=== PATIENT | female | born 1995 | race American Indian/Alaskan Native ===

== ENCOUNTER 2017-04-18 13:05 | Inpatient (IN) | payer OTHER, MEDICAID ==
[2017-04-18] MEDS ORDERED: Lactated Ringers 1,000 ML IV SCH (13:30)
[2017-04-18] MEDS ORDERED: Sodium Chloride 0.9% 10 ML Syringe FLUSH PRN ×2 (13:30→15:50)
[2017-04-18] MEDS ORDERED: Bupivacaine 0.5% 30 ML SDV ONE (13:46)
[2017-04-18] MEDS ORDERED: Metoclopramide 10 MG/2 ML SDV ONE (13:48)
[2017-04-18] MEDS ORDERED: Citric Acid/Sodium Citrate Solution 30 ML Cup ONE (13:50)
[2017-04-18] MEDS ORDERED: Metoclopramide 10 MG/2 ML SDV IVPUSH ONE (13:51)
[2017-04-18] MEDS ORDERED: Citric Acid/Sodium Citrate Solution 30 ML Cup PO ONE (13:51)
--- NOTE | 2017-04-18 14:04 | PCM.LDHP ---
L&D History of Present Illness - General Date of Service: 04/18/17 Admit Problem/Dx: Patient Status Order with Admit Dx/Problem 04/18/17 13:36 Patient Status [ADT] Routine Admission Diagnosis/Problem Admission Diagnosis/Problem Normal labor Source of Information: Patient History Limitations: Reports: No Limitations - History of Present Illness Introduction:: 21-year-old G MEGHANA 04/25/1739 weeks 0 days estimated gestational age with history of Montini us ruptured membranes at 1900 hrs. on Wednesday04/16/17 ( now 36-37 hours ruptured membranes) cervix on presentation to labor and delivery fingertip dilated posterior soft 50% effaced foul odor from the vagina if vaginal delivery were to be anticipated estimated at least 12-14 hours of additional ruptured membranes and contractions if adequate progress is made due to the category 2 heart rate pattern and prolonged ruptured membranes and foul odor my recommendation is to proceed with section family father of baby and mother agree patient is a patient of Dr. López's GC and chlamydia probe negative hepatitis B surface antigen negative free T4 normal rubella is negative blood group A RPR nonreactive immune status nonimmune Rh+ antibody screen negative group B strep negative HIV negative TSH normal range hemoglobin hematocrit on 10/23/1712/38.2 Improves with: Reports: None Worsens with: Reports: None Associated Symptoms: Reports: N - Related Data Allergies/Adverse Reactions: Allergies Allergy/AdvReac Type Severity Reaction Status Date / Time No Known Allergies Allergy Verified 04/13/17 22:35 Home Medications: Home Meds Vit 90/Iron Fum/Folic [ Formula] 1 each PO DAILY 10/25/16 [ History] Acetaminophen with Codeine [Tylenol with Codeine #3 Tablet] 1 each PO Q6HR PRN # 5 tablet 11/13/16 [Rx] Ondansetron [Zofran ODT] 4 mg PO Q6H PRN #15 tab.dis 11/13/16 [Rx] Past Medical History - Past Health History Medical/Surgical History: Denies Medical/Surgical History SINGING MESSENGER History: Reports: Spontaneous : 3 Para: 0 (0020) LMP (Approximate): Other (See Below) (Patient has past medical history of chlamydia no history of MRSA) Other OB/BYN History: currently - Past Surgical History Head Surgeries/Procedures: Reports: None HEENT Surgical History: Reports: None Cardiovascular Surgical History: Reports: None Respiratory Surgical History: Reports: None GI Surgical History: Reports: None Female Surgical History: Reports: None Male Surgical History: Reports: None Endocrine Surgical History: Reports: None Neurological Surgical History: Reports: None Musculoskeletal Surgical History: Reports: None Oncologic Surgical History: Reports: None Dermatological Surgical History: Reports: None Social & Family History - Family History Family Medical History: Noncontributory - Tobacco Use Smoking Status *Q: Never Smoker Years of Tobacco use: 1 Used Tobacco, but Quit: No - Caffeine Use Caffeine Use: Reports: None - Recreational Drug Use Recreational Drug Use: No Recreational Drug Type: Reports: Marijuana/Hashish - Living Situation & Occupation Living situation: Reports: Single Occupation: Unemployed H&P Review of Systems - Review of Systems: Review Of Systems: See Below General: Reports: No Symptoms HEENT: Reports: No Symptoms Pulmonary: Reports: No Symptoms Cardiovascular: Reports: No Symptoms Gastrointestinal: Reports: No Symptoms Genitourinary: Reports: No Symptoms Musculoskeletal: Reports: No Symptoms Skin: Reports: No Symptoms Psychiatric: Reports: No Symptoms Neurological: Reports: No Symptoms Hematologic/Lymphatic: Reports: No Symptoms Immunologic: Reports: No Symptoms L&D Exam - Exam Exam: See Below - Vital Signs Weight: 215 lb - OB Specific Fundal Height In cm: 39 Contraction Duration (sec): 60 Contraction Frequency (min): irregular Contraction Intensity: Mild Movement: Active Heart Tones: Present Heart Tones per Min: 130 Heart Rate (FHR) Variability: Minimal (0-5 bpm) Presentation: Vertex - Mathias Score Mathias Score Cervix Position: Posterior Mathias Score Consistency: Soft Mathias Score Effacement: 0-30% Mathias Score Dilation: 1-2 cm Mathias Score Infant's Station: -2 Mathias Score Total: 4 - Exam General: Alert, Oriented HEENT: Mucosa Moist & [place] Neck: Supple, Trachea Midline Lungs: Clear to Auscultation, Normal Respiratory Effort Cardiovascular: Regular Rate, Regular Rhythm Abdomen: Normal Bowel Sounds, Soft, Pelvis Stable Genitourinary: Normal external exam (Cervix 1 cm dilated 20-30% effaced and soft posterior, cephalic -2 foul odor noted on vaginal exam) Extremities: Normal Inspection Skin: Warm, Dry, Intact Psychiatric: Alert, Normal Affect, Normal Mood - Problem List (1) 39 weeks gestation of SNOMED Code(s): 74116867 ICD Code: Z3A.39 - 39 WEEKS GESTATION OF Status: Acute Current Visit: Yes (2) Prolonged rupture of membranes, greater than 24 hours, delivered SNOMED Code(s): 41576409 ICD Code: O42.10 - GARO ROM, ONSET LABOR > 24 HR FOL RUPT, UNSP WEEKS OF GEST Status: Acute Current Visit: Yes Problem List Initiated/Reviewed/Updated: No Orders Last 24hrs: Active Orders 24 hr Category Date Time Status Patient Status [ADT] Routine ADT 04/18/17 13:36 Active Activity as Tolerated [RC] PFP Care 04/18/17 13:36 Active Antiembolic Devices [RC] PER UNIT ROUTINE Care 04/18/17 13:54 Ordered Communication Order [RC] ASDIRECTED Care 04/18/17 13:36 Active Heart Tones [RC] ASDIRECTED Care 04/18/17 13:36 Active Salcido Catheter Insertion [Insert Urinary Catheter] [OM. Care 04/18/17 14:00 Ordered PC] Q24H Notify Provider [RC] PFP Care 04/18/17 13:36 Active Notify Provider [RC] PRN Care 04/18/17 13:36 Active Peripheral IV Care [RC] . DIRECTED Care 04/18/17 13:36 Active Urinary Catheter Assessment [RC] ASDIRECTED Care 04/18/17 13:54 Ordered Verify Patient Consent Obtain [RC] ASDIRECTED Care 04/18/17 13:52 Ordered Vital Signs [RC] PER UNIT ROUTINE Care 04/18/17 13:36 Active CBC WITH AUTO DIFF [HEME] Stat Lab 04/18/17 13:30 Ordered TYPE AND SCREEN [BBK] Stat Lab 04/18/17 13:30 Ordered Lactated Ringers [Ringers, Lactated] 1,000 ml Med 04/18/17 13:30 Active IV ASDIRECTED Sodium Chloride 0.9% [Saline Flush] Med 04/18/17 13:30 Active 10 ml FLUSH ASDIRECTED PRN Electronic Heart Tones Ext w TOCO [WOMSER] Oth 04/18/17 13:36 Ordered Routine Electronic Heart Tones Internal [WOMSER] Per Unit Oth 04/18/17 13:36 Ordered Routine Peripheral IV Insertion Adult [OM.PC] Routine Oth 04/18/17 13:36 Ordered SCD [Sequential Compression Device] [OM.PC] Routine Oth 04/18/17 13:54 Ordered Schedule Procedure [COMM] Urgent Oth 04/18/17 13:51 Ordered Resuscitation Status Routine Resus Stat 04/18/17 13:30 Ordered Medication Orders Lactated Ringer's (Ringers, Lactated) 1,000 mls @ 100 mls/hr IV ASDIRECTED WILLIAM Sodium Chloride (Saline Flush) 10 ml FLUSH ASDIRECTED PRN PRN Reason: Keep Vein Open Assessment/Plan Comment:: Due to prolonged ruptured membranes for greater than 36 hours, category 2 heart rate initially, and anticipate vaginal delivery at least 12 hours or more from now placing patient 48 hours ruptured membranes and foul odor from the vagina and the recommendations for section patient father of the baby and mother agree
[2017-04-18] MEDS ORDERED: Oxytocin 10 Units/1 ML SDV ONE (14:07)
[2017-04-18] MEDS ORDERED: Lactated Ringers 2,000 ML ONE (14:07)
[2017-04-18] MEDS ORDERED: Morphine PF 10 MG/10 ML SDV ONE (14:07)
[2017-04-18] MEDS ORDERED: Ketorolac 30 MG/ML SDV ONE (14:07)
[2017-04-18] MEDS ORDERED: ceFAZolin 1 GM Vial ONE (14:07)
[2017-04-18] MEDS ORDERED: Ondansetron 4 MG/2 ML SDV ONE (14:07)
[2017-04-18] MEDS ORDERED: diphenhydrAMINE 50 MG/ML SDV IVPUSH PRN ×2 (14:37→15:50)
[2017-04-18] MEDS ORDERED: Ondansetron 4 MG/2 ML SDV IVPUSH PRN (14:37)
[2017-04-18] MEDS ORDERED: fentaNYL 100 MCG/2 ML SDV IVPUSH PRN (14:37)
[2017-04-18] MEDS ORDERED: Meperidine PF 50 MG/ML Syringe IVPUSH PRN (14:37)
[2017-04-18] MEDS ORDERED: ePHEDrine/Normal Saline 25 MG/5 ML Syringe ONE (14:42)
--- NOTE | 2017-04-18 14:45 | PCM.PREANE ---
Preanesthetic Assessment - Physical Assessment NPO Status Date: 04/17/17 NPO Status Time: 23:00 (tea at 11 today) Pulse: 74 O2 Sat by Pulse Oximetry: 97 Respiratory Rate: 20 Blood Pressure: 116/71 Temperature: 97.9 F Height: 5 ft 8 in Weight: 97.522 kg ASA Class: 2E Mental Status: Alert & Oriented x3 Airway Class: Mallampati = 1 Dentition: Reports: Normal Dentition Thyro-Mental Finger Breadths: 3 Mouth Opening Finger Breadths: 3 ROM/Head Extension: Full Lungs: Clear to auscultation, Normal respiratory effort Cardiovascular: Regular Rate, Regular Rhythm - Lab Values: Laboratory Last Values WBC 6.24 K/mm3 (3.98-10.04) 04/18/17 13:50 RBC 3.78 M/mm3 (3.98-5.22) L 04/18/17 13:50 Hgb 11.4 gm/L (11.2-15.7) 04/18/17 13:50 Hct 33.0 % (34.1-44.9) L 04/18/17 13:50 MCV 87.3 fl (79.4-94.8) 04/18/17 13:50 MCH 30.2 pg (25.6-32.2) 04/18/17 13:50 MCHC 34.5 g/dl (32.2-35.5) 04/18/17 13:50 RDW Std Deviation 42.5 fL (36.4-46.3) 04/18/17 13:50 Plt Count 190 K/mm3 (182-369) 04/18/17 13:50 MPV 9.8 fl (9.4-12.3) 04/18/17 13:50 Neut % (Auto) 65.1 % (34.0-71.1) 04/18/17 13:50 Lymph % (Auto) 26.8 % (19.3-51.7) 04/18/17 13:50 [place] % (Auto) 7.1 % (4.7-12.5) 04/18/17 13:50 Eos % (Auto) 0.6 (0.7-5.8) L 04/18/17 13:50 Baso % (Auto) 0.2 % (0.1-1.2) 04/18/17 13:50 Neut # (Auto) 4.07 K/mm3 (1.56-6.13) 04/18/17 13:50 Lymph # (Auto) 1.67 K/mm3 (1.18-3.74) 04/18/17 13:50 [place] # (Auto) 0.44 K/mm3 (0.24-0.36) H 04/18/17 13:50 Eos # (Auto) 0.04 K/mm3 (0.04-0.36) 04/18/17 13:50 Baso # (Auto) 0.01 K/mm3 (0.01-0.08) 04/18/17 13:50 - Allergies Allergies/Adverse Reactions: Allergies Allergy/AdvReac Type Severity Reaction Status Date / Time No Known Allergies Allergy Verified 04/13/17 22:35 - Blood Blood Available: No - Acknowledgements Anesthesia Type Planned: Spinal Pt an Appropriate Candidate for the Planned Anesthesia: Yes Alternatives and Risks of Anesthesia Discussed w Pt/Guardian: Yes Pt/Guardian Understands and Agrees with Anesthesia Plan: Yes PreAnesthesia Questionnaire - Past Health History Medical/Surgical History: Denies Medical/Surgical History Cardiovascular History: Reports: None Respiratory History: Reports: None TUNNEL MUCKER History: Reports: Spontaneous : 3 Para: 0 Other OB/BYN History: currently - Past Surgical History Head Surgeries/Procedures: Reports: None HEENT Surgical History: Reports: None Cardiovascular Surgical History: Reports: None Respiratory Surgical History: Reports: None GI Surgical History: Reports: None Female Surgical History: Reports: None Male Surgical History: Reports: None Endocrine Surgical History: Reports: None Neurological Surgical History: Reports: None Musculoskeletal Surgical History: Reports: None Oncologic Surgical History: Reports: None Dermatological Surgical History: Reports: None - SUBSTANCE USE Smoking Status *Q: Former Smoker (quit when ) Tobacco Use Within Last Twelve Months: Cigarettes Second Hand Smoke Exposure: Yes Days Per Week of Alcohol Use: 0 Recreational Drug Use History: No Recreational Drug Type: Reports: Marijuana/Hashish (denies) - HOME MEDS Home Medications: Home Meds Vit 90/Iron Fum/Folic [ Formula] 1 each PO DAILY 10/25/16 [ History] Acetaminophen with Codeine [Tylenol with Codeine #3 Tablet] 1 each PO Q6HR PRN # 5 tablet 11/13/16 [Rx] Ondansetron [Zofran ODT] 4 mg PO Q6H PRN #15 tab.dis 11/13/16 [Rx] - CURRENT (IN HOUSE) MEDS Current Meds: Current Medications Diphenhydramine HCl (Benadryl) 25 mg IVPUSH Q6H PRN PRN Reason: pruritis Fentanyl (Sublimaze) 50 mcg IVPUSH Q5M PRN PRN Reason: Pain Lactated Ringer's (Ringers, Lactated) 1,000 mls @ 100 mls/hr IV ASDIRECTED WILLIAM Meperidine HCl (Demerol) 12.5 mg IVPUSH ONETIME PRN PRN Reason: shivering Stop: 04/19/17 14:38 Ondansetron HCl (Zofran) 4 mg IVPUSH ONETIME PRN PRN Reason: Nausea/Vomiting Sodium Chloride (Saline Flush) 10 ml FLUSH ASDIRECTED PRN PRN Reason: Keep Vein Open Discontinued Medications Bupivacaine HCl (Marcaine 0.5%) Confirm Administered Dose 30 ml .ROUTE .STK-MED ONE Stop: 04/18/17 13:47 Cefazolin Sodium (Ancef) Confirm Administered Dose 2 gm .ROUTE .STK-MED ONE Stop: 04/18/17 14:08 Citric Acid/Sodium Citrate (Bicitra Solution) Confirm Administered Dose 30 ml .ROUTE .STK-MED ONE Stop: 04/18/17 13:51 Citric Acid/Sodium Citrate (Bicitra Solution) 30 ml PO ONETIME ONE Stop: 04/18/17 13:52 Ephedrine Sulfate (Ephedrine In Ns) Confirm Administered Dose 25 mg .ROUTE .STK- MED ONE Stop: 04/18/17 14:43 Lactated Ringer's (Ringers, Lactated) Confirm Administered Dose 2,000 mls @ as directed .ROUTE .STK-MED ONE Stop: 04/18/17 14:08 Ketorolac Tromethamine (Toradol) Confirm Administered Dose 30 mg .ROUTE .STK- MED ONE Stop: 04/18/17 14:08 Metoclopramide HCl (Reglan) Confirm Administered Dose 10 mg .ROUTE .STK-MED ONE Stop: 04/18/17 13:49 Metoclopramide HCl (Reglan) 10 mg IVPUSH ONETIME ONE Stop: 04/18/17 13:52 Morphine Sulfate (Duramorph Pf) Confirm Administered Dose 10 mg .ROUTE .STK-MED ONE Stop: 04/18/17 14:08 Ondansetron HCl (Zofran) Confirm Administered Dose 4 mg .ROUTE .STK-MED ONE Stop: 04/18/17 14:08 Oxytocin (Pitocin) Confirm Administered Dose 10 unit .ROUTE .STK-MED ONE Stop: 04/18/17 14:08
--- NOTE | 2017-04-18 15:21 | PCM.OPNOTE ---
- General Post-Op/Procedure Note Date of Surgery/Procedure: 04/18/17 Operative Procedure(s): Primary section low transverse segment Pre Op Diagnosis: 39 weeks estimated gestational age, prolonged premature ruptured membranes 36+ hours Post-Op Diagnosis: Same plus occiput posterior, nuchal cord 1 Anesthesia Technique: Spinal Primary Surgeon: Daniel Crum Secondary Surgeon: Jordi (Farhad Acosta RN) Anesthesia Provider: Marcel Lieberman Booster Operator: Liana Durán ([id number]) Fluid Replacement, Intraop: 1,200 Output, Urine Amount: 160 EBL in mLs: 800 Drain/Tube Comments:: Salcido catheter Complications: None Condition: Good Free Text/Narrative:: Patient was transported to operating room #1 and placed under spinal anesthesia in the supine position with a wedge under the right hip and right flank Salcido catheter placed gravity drainage vaginal and abdominal prep performed patient draped in a sterile fashion timeout performed confirming name date of procedure as primary section. Adequate level of anesthesia was confirmed patient's mother was brought to the operating room injecting 20 mL of 0.5% Marcaine subcutaneously without epinephrine in the area of the planned incision. Patient had SCDs in place and functioning prior surgery and received 2 g of Ancef prior to surgery Pfannenstiel incision was made and care was sharp section to into the anterior fascia peritoneal cavity was entered without difficulty bladder flap created pushed caudad low segment transverse performed delivering a male liveborn at 1448 hrs. on Sundays04/18/17 weighing 8 lbs. 10 oz. 9/9 Dr. Hawkins mail messenger contractor in attendance a 6 inch or longer segment of cord taken for the nursery encase sepsis is encountered, aerobic anaerobic culture taken of the surface of the placenta after obtaining cord blood from three-vessel cord and manual removal of the placenta placenta was sent to pathology for tissue evaluation endometrial cavity was inspected cervical patency was assured and sponge needle pack asthma sharp count correct times one the uterine incision closed with a running locking suture of #0 Monocryl second layer horizontal imbricating suture of 0 Monocryl was tubes and ovaries were normal clot screen from the gutters and cul-de-sac uterus placed into the abdominal cavity uterine incision reinspected no bleeding sponge needle pack asthma sharp count correct 2 the abdominal cavity was closed with # 1 PDS for the anterior fascia irrigation carried out in the subcutaneoustissue and the skin was approximated with 3-0 Monocryl Don needle subcuticular suture Dermabond Preneo applied. Clots were cleaned from the vagina patient transported postanesthesia care unit in satisfactory condition no blood transfusions were required patient in stable condition
--- NOTE | 2017-04-18 15:21 | PCM.POSTAN ---
POST ANESTHESIA ASSESSMENT - MENTAL STATUS Mental Status: alert, oriented - VITAL SIGNS Pulse Rate: 60 SaO2: 96 Resp Rate: 19 Blood Pressure: 108/63 Temperature: 97.2 F - RESPIRATORY Respiratory Status: respiratory rate WNL, airway patent, O2 saturation stable, supplemental oxygen - CARDIOVASCULAR CV Status: pulse rate WNL, blood pressure stable - GASTROINTESTINAL GI Status: no symptoms - PAIN Pain Score: 0 - POST OP HYDRATION Hydration Status: adequate & stable
[2017-04-18] MEDS ORDERED: Lanolin 100% Cream 7 GM Tube TOP PRN (15:50)
[2017-04-18] MEDS ORDERED: Witch Hazel Medicated Pads 100/Jar TOP PRN (15:50)
[2017-04-18] MEDS ORDERED: Dextrose 5%-0.45% NaCl 1,000 ML IV SCH (15:50)
[2017-04-18] MEDS ORDERED: Dextrose 5%-Lactated Ringers 1,000 ML IV SCH (15:50)
[2017-04-18] MEDS ORDERED: ePHEDrine 50 MG/ML SDV IVPUSH PRN (15:50)
[2017-04-18] MEDS ORDERED: Acetaminophen 325 MG Tab PO PRN (15:50)
[2017-04-18] MEDS ORDERED: Ondansetron 4 MG/2 ML SDV IV PRN (15:50)
[2017-04-18] MEDS ORDERED: Naloxone 0.4 MG/ML SDV IVPUSH PRN (15:50)
[2017-04-18] MEDS: cefOXitin 2 GM in Premix Bag 1 BAG IV SCH (18:55)
[2017-04-18] MEDS: Simethicone 80 MG Tab.Chew PO SCH ×3 (18:55→23:50)
[2017-04-18] MEDS: Ketorolac 30 MG/ML SDV IVPUSH SCH (20:56)
[2017-04-19] MEDS: cefOXitin 2 GM in Premix Bag 1 BAG IV SCH ×5 (00:01→23:48)
[2017-04-19] MEDS: Ketorolac 30 MG/ML SDV IVPUSH SCH ×2 (02:22→07:31)
[2017-04-19] MEDS ORDERED: Measles, Mumps & Rubella Vaccine 0.5 ML SDV SUBCUT ONE (03:39)
--- NOTE | 2017-04-19 08:25 | PCM.SN ---
- Free Text/Narrative Note: Postop day #1 No heavy vaginal bleeding no leg cramping incision healing normally
[2017-04-19] MEDS: Docusate Sodium 100 MG Cap PO PRN (09:45)
[2017-04-19] MEDS: Acetaminophen/oxyCODONE 325-5 MG Tab PO PRN ×3 (09:45→23:46)
[2017-04-19] MEDS: Simethicone 80 MG Tab.Chew PO SCH ×4 (11:07→23:46)
[2017-04-19] MEDS ORDERED: Ibuprofen 600 MG Tab PO PRN (14:00)
--- NOTE | 2017-04-19 15:24 | PCM48HPAN ---
Post Anesthesia Note - EVALUATION WITHIN 48HRS OF ANESTHETIC Vital Signs in Normal Range: Yes Patient Participated in Evaluation: Yes Respiratory Function Stable: Yes Airway Patent: Yes Cardiovascular Function Stable: Yes Hydration Status Stable: Yes Pain Control Satisfactory: Yes Nausea and Vomiting Control Satisfactory: Yes Mental Status Recovered: Yes - COMMENTS/OBSERVATIONS Free Text/Narrative:: Patient denied any residual LE weakness, headaches, or back pain. Doing well. Ambulating fine. Denies any problems
[2017-04-20] MEDS: Acetaminophen/oxyCODONE 325-5 MG Tab PO PRN ×2 (04:54→11:40)
[2017-04-20] MEDS: cefOXitin 2 GM in Premix Bag 1 BAG IV SCH (06:39)
[2017-04-20] MEDS: Docusate Sodium 100 MG Cap PO PRN (09:03)
[2017-04-20] MEDS: Simethicone 80 MG Tab.Chew PO SCH (09:03)
--- NOTE | 2017-04-20 10:02 | PCM.DCSUM1 ---
Discharge Summary - Hospital Course Free Text/Narrative:: [facility] Post-Op/Procedure Note Patient Name: SARAH ELMORE Date of : 89 Patient Status: Inpatient Attending Provider: Daniel Crum Date: 04/18/17 15:16 Initialization Date: 04/18/17 15:16 Addendum entered and electronically signed by Daniel Crum MD 04/18/17 15 :26: At the time of delivery vacuum required for delivering the fetus 2 in the green for less than 10 seconds Original Note: - General Post-Op/Procedure Note Date of Surgery/Procedure: 04/18/17 Operative Procedure(s): Primary section low transverse segment Pre Op Diagnosis: 39 weeks estimated gestational age, prolonged premature ruptured membranes 36+ hours Post-Op Diagnosis: Same plus occiput posterior, nuchal cord 1 Anesthesia Technique: Spinal Primary Surgeon: Daniel Crum Secondary Surgeon: Jordi (Farhad Acosta RN) Anesthesia Provider: Marcel Lieberman Open Hearth Laborer: Liana Durán (MS3) Fluid Replacement, Intraop: 1,200 Output, Urine Amount: 160 EBL in mLs: 800 Drain/Tube Comments:: Salcido catheter Complications: None Condition: Good Free Text/Narrative:: Patient was transported to operating room #1 and placed under spinal anesthesia in the supine position with a wedge under the right hip and right flank Salcido catheter placed gravity drainage vaginal and abdominal prep performed patient draped in a sterile fashion timeout performed confirming name date of procedure as primary section. Adequate level of anesthesia was confirmed patient's mother was brought to the operating room injecting 20 mL of 0.5% Marcaine subcutaneously without epinephrine in the area of the planned incision. Patient had SCDs in place and functioning prior surgery and received 2 g of Ancef prior to surgery Pfannenstiel incision was made and care was sharp section to into the anterior fascia peritoneal cavity was entered without difficulty bladder flap created pushed caudad low segment transverse performed delivering a male liveborn at 1448 hrs. on Sundays04/18/17 weighing 8 lbs. 10 oz. 9/9 Dr. Hawkins fixed wing aircraft flight engineer in attendance a 6 inch or longer segment of cord taken for the nursery encase sepsis is encountered, aerobic anaerobic culture taken of the surface of the placenta after obtaining cord blood from three-vessel cord and manual removal of the placenta placenta was sent to pathology for tissue evaluation endometrial cavity was inspected cervical patency was assured and sponge needle pack asthma sharp count correct times one the uterine incision closed with a running locking suture of #0 Monocryl second layer horizontal imbricating suture of 0 Monocryl was tubes and ovaries were normal clot screen from the gutters and cul-de-sac uterus placed into the abdominal cavity uterine incision reinspected no bleeding sponge needle pack asthma sharp count correct 2 the abdominal cavity was closed with # 1 PDS for the anterior fascia irrigation carried out in the subcutaneoustissue and the skin was approximated with 3-0 Monocryl Don needle subcuticular suture Dermabond Preneo applied. Clots were cleaned from the vagina patient transported postanesthesia care unit in satisfactory condition no blood transfusions were required patient in stable condition HPI Initial Comments: [facility] Post-Op/Procedure Note Patient Name: SARAH ELMORE Date of : [birth year] Patient Status: Inpatient Attending Provider: Daniel Crum Date: 04/18/17 15:16 Initialization Date: 04/18/17 15:16 Addendum entered and electronically signed by Daniel Crum MD 04/18/17 15 :26: At the time of delivery vacuum required for delivering the fetus 2 in the green for less than 10 seconds Original Note: - General Post-Op/Procedure Note Date of Surgery/Procedure: 04/18/17 Operative Procedure(s): Primary section low transverse segment Pre Op Diagnosis: 39 weeks estimated gestational age, prolonged premature ruptured membranes 36+ hours Post-Op Diagnosis: Same plus occiput posterior, nuchal cord 1 Anesthesia Technique: Spinal Primary Surgeon: Daniel Crum Secondary Surgeon: Jordi (Farhad Acosta RN) Anesthesia Provider: Marcel Lieberman Open Hearth Laborer: Liana Durán (MS3) Fluid Replacement, Intraop: 1,200 Output, Urine Amount: 160 EBL in mLs: 800 Drain/Tube Comments:: Salcido catheter Complications: None Condition: Good Free Text/Narrative:: Patient was transported to operating room #1 and placed under spinal anesthesia in the supine position with a wedge under the right hip and right flank Salcido catheter placed gravity drainage vaginal and abdominal prep performed patient draped in a sterile fashion timeout performed confirming name date of procedure as primary section. Adequate level of anesthesia was confirmed patient's mother was brought to the operating room injecting 20 mL of 0.5% Marcaine subcutaneously without epinephrine in the area of the planned incision. Patient had SCDs in place and functioning prior surgery and received 2 g of Ancef prior to surgery Pfannenstiel incision was made and care was sharp section to into the anterior fascia peritoneal cavity was entered without difficulty bladder flap created pushed caudad low segment transverse performed delivering a male liveborn at 1448 hrs. on Sundays04/18/17 weighing 8 lbs. 10 oz. 9/9 Dr. Hawkins fixed wing aircraft flight engineer in attendance a 6 inch or longer segment of cord taken for the nursery encase sepsis is encountered, aerobic anaerobic culture taken of the surface of the placenta after obtaining cord blood from three-vessel cord and manual removal of the placenta placenta was sent to pathology for tissue evaluation endometrial cavity was inspected cervical patency was assured and sponge needle pack asthma sharp count correct times one the uterine incision closed with a running locking suture of #0 Monocryl second layer horizontal imbricating suture of 0 Monocryl was tubes and ovaries were normal clot screen from the gutters and cul-de-sac uterus placed into the abdominal cavity uterine incision reinspected no bleeding sponge needle pack asthma sharp count correct 2 the abdominal cavity was closed with # 1 PDS for the anterior fascia irrigation carried out in the subcutaneoustissue and the skin was approximated with 3-0 Monocryl Don needle subcuticular suture Dermabond Preneo applied. Clots were cleaned from the vagina patient transported postanesthesia care unit in satisfactory condition no blood transfusions were required patient in stable condition Brief History: [facility] . Post-Op/Procedure Note. Patient Name: SARAH ELMOREical Record Number: [id number]. Date of : [birth year]Patient Status: Inpatient. Attending Provider: Daniel Crumount Number: [id number]. Date: 04/18/17 15:16Initialization Date: 15:16. Addendum entered and electronically signed by Daniel Crum MD 04/18/17 15:26: At the time of delivery vacuum required for delivering the fetus 2 in the green for less than 10 seconds. Original Note: - General Post- Op/Procedure Note. Date of Surgery/Procedure: 04/18/17. Operative Procedure(s) : Primary section low transverse segment. Pre Op Diagnosis: 39 weeks estimated gestational age, prolonged premature ruptured membranes 36+ hours. Post-Op Diagnosis: Same plus occiput posterior, nuchal cord 1. Anesthesia Technique: Spinal. Primary Surgeon: Daniel Crum. Secondary Surgeon: Jordi (Farhad Acosta RN). Anesthesia Provider: Marcel Lieberman. Open Hearth Laborer: Liana Durán (MS3). Fluid Replacement, Intraop: 1,200. Output, Urine Amount: 160. EBL in mLs: 800. Drain/Tube Comments:: Salcido catheter. Complications: None. Condition: Good. Free Text/Narrative:: Patient was transported to operating room #1 and placed under spinal anesthesia in the supine position with a wedge under the right hip and right flank Salcido catheter placed gravity drainage vaginal and abdominal prep performed patient draped in a sterile fashion timeout performed confirming name date of procedure as primary section. Adequate level of anesthesia was confirmed patient's mother was brought to the operating room injecting 20 mL of 0.5% Marcaine subcutaneously without epinephrine in the area of the planned incision. Patient had SCDs in place and functioning prior surgery and received 2 g of Ancef prior to surgery Pfannenstiel incision was made and care was sharp section to into the anterior fascia peritoneal cavity was entered without difficulty bladder flap created pushed caudad low segment transverse performed delivering a male liveborn at 1448 hrs. on Sundays04/18/17 weighing 8 lbs. 10 oz. 9/9 Dr. Hawkins fixed wing aircraft flight engineer in attendance a 6 inch or longer segment of cord taken for the nursery encase sepsis is encountered, aerobic anaerobic culture taken of the surface of the placenta after obtaining cord blood from three-vessel cord and manual removal of the placenta placenta was sent to pathology for tissue evaluation endometrial cavity was inspected cervical patency was assured and sponge needle pack asthma sharp count correct times one the uterine incision closed with a running locking suture of #0 Monocryl second layer horizontal imbricating suture of 0 Monocryl was tubes and ovaries were normal clot screen from the gutters and cul-de-sac uterus placed into the abdominal cavity uterine incision reinspected no bleeding sponge needle pack asthma sharp count correct 2 the abdominal cavity was closed with #1 PDS for the anterior fascia irrigation carried out in the subcutaneoustissue and the skin was approximated with 3-0 Monocryl Don needle subcuticular suture Dermabond Preneo applied. Clots were cleaned from the vagina patient transported postanesthesia care unit in satisfactory condition no blood transfusions were required patient in stable condition - Discharge Data Discharge Date: 04/20/17 Discharge Disposition: Home, Self-Care 01 Condition: Good - Discharge Diagnosis/Problem(s) (1) 39 weeks gestation of SNOMED Code(s): 52989702 ICD Code: Z3A.39 - 39 WEEKS GESTATION OF Status: Acute Current Visit: No (2) Prolonged rupture of membranes, greater than 24 hours, delivered SNOMED Code(s): 04427832 ICD Code: O42.10 - GARO ROM, ONSET LABOR > 24 HR FOL RUPT, UNSP WEEKS OF GEST Status: Acute Current Visit: No (3) Nuchal cord without compression, delivered, current hospitalization SNOMED Code(s): 31210773 ICD Code: O69.81X0 - LABOR AND DEL COMP BY CORD AROUND NECK, W/O COMPRSN, UNSP Status: Acute Current Visit: Yes (4) Occiput posterior presentation of fetus SNOMED Code(s): 66566344 ICD Code: O64.0XX0 - OBSTRUCTED LABOR DUE TO INCMPL ROTATION OF HEAD, UNSP Status: Acute Current Visit: Yes Qualifiers: Fetus number: single or unspecified fetus Qualified Code(s): O64.0XX0 - Obstructed labor due to incomplete rotation of head, not applicable or unspecified - Patient Summary/Data Operative Procedure(s) Performed: Primary section low transverse segment Complications: none Consults: none Hospital Course: uneventful - Patient Instructions Diet: Heart Healthy Diet Driving: Do Not Drive (x4 weeks) Showering/Bathing: May Shower, No Tub Bathing/Swimming (x6 weeks) Wound/Incision Care: Keep Operative Site/Wound Site Clean and Dry Notify Provider of: Fever, Increased Pain, Swelling and Redness, Drainage, Nausea and/or Vomiting - Discharge Plan Home Medications: Home Meds Vit 90/Iron Fum/Folic [ Formula] 1 each PO DAILY 10/25/16 [ History] Acetaminophen [Tylenol] 650 mg PO Q6H PRN #0 tablet 04/20/17 [Rx] Acetaminophen/oxyCODONE [Percocet 325-5 MG] 1 tab PO Q6H PRN #25 tablet [Rx] Docusate Sodium [Colace] 100 mg PO Q12H PRN #0 cap 04/20/17 [Rx] Ibuprofen [IJD: Ibuprofen] 600 mg PO Q6H PRN #0 tablet 04/20/17 [Rx] Simethicone 80 mg PO PCBED tab.chew 04/20/17 [Rx] Witaditi Savannah [Tucks] 1 pad TOP ASDIRECTED PRN #0 pad 04/20/17 [Rx] Referrals: Tayler Calhoun MD [Primary Care Provider] - (4 weeks) - Discharge Summary/Plan Comment DC Time >30 min.: No - Patient Data Vitals - Most Recent: Last Vital Signs Temp 98.1 F 04/20/17 04:32 Pulse 55 L 04/20/17 04:32 Resp 12 04/20/17 04:32 BP 115/62 04/20/17 04:32 Pulse Ox 98 04/20/17 04:32 Weight - Most Recent: 215 lb I&O - Last 24 hours: Intake & Output 04/19/17 04/20/17 04/20/17 22:59 06:59 14:59 Intake Total 900 Output Total 100 Balance 800 HOLA Results - Last 24 hrs: Microbiology 04/18/17 15:50 Gram Stain - Final Placenta - Placenta, Side Anaerobic Culture - Preliminary NO GROWTH AFTER 1 DAY Med Orders - Current: Current Medications Acetaminophen (Tylenol) 650 mg PO Q4H PRN PRN Reason: mild pain or fever Diphenhydramine HCl (Benadryl) 25 mg IVPUSH Q6H PRN PRN Reason: Itching or Nausea Last Admin: 04/18/17 20:01 Dose: 25 mg Docusate Sodium (Colace) 100 mg PO Q12H PRN PRN Reason: Constipation Last Admin: 04/20/17 09:03 Dose: 100 mg Emollient Ointment (Lansinoh Hpa) 0 gm TOP ASDIRECTED PRN PRN Reason: Sore Nipples Ephedrine Sulfate (Ephedrine Sulfate) 5 mg IVPUSH SEECOMMENT PRN PRN Reason: Other Dextrose/Sodium Chloride (Dextrose 5%-1/2 Ns) 1,000 mls @ 125 mls/hr IV ASDIRECTED [facility] Last Admin: 04/19/17 02:10 Dose: 125 mls/hr Cefoxitin Sodium 2 gm/ Premix 50 mls @ 100 mls/hr IV Q6HR [facility] Last Admin: 04/20/17 06:39 Dose: 100 mls/hr Ibuprofen (Motrin) 600 mg PO Q6H PRN PRN Reason: mild pain or fever Naloxone HCl (Narcan) 0.1 mg IVPUSH SEECOMMENT PRN PRN Reason: Respiratory Depression Ondansetron HCl (Zofran) 4 mg IV Q8H PRN PRN Reason: Nausea/Vomiting Last Admin: 04/18/17 21:02 Dose: 4 mg Oxycodone/Acetaminophen (Percocet 325-5 Mg) 2 tab PO Q4H PRN PRN Reason: Pain (moderate 4-6) Last Admin: 04/20/17 04:54 Dose: 2 tab Simethicone (Simethicone) 80 mg PO PCBED [facility] Last Admin: 04/20/17 09:03 Dose: 80 mg Sodium Chloride (Saline Flush) 10 ml FLUSH ASDIRECTED PRN PRN Reason: Keep Vein Open Witch Savannah (Tucks) 1 pad TOP ASDIRECTED PRN PRN Reason: Perineal Comfort Measure Discontinued Medications Bupivacaine HCl (Marcaine 0.5%) Confirm Administered Dose 30 ml .ROUTE .STK-MED ONE Stop: 04/18/17 13:47 Last Admin: 04/18/17 14:42 Dose: 20 ml Cefazolin Sodium (Ancef) Confirm Administered Dose 2 gm .ROUTE .STK-MED ONE Stop: 04/18/17 14:08 Citric Acid/Sodium Citrate (Bicitra Solution) Confirm Administered Dose 30 ml .ROUTE .STK-MED ONE Stop: 04/18/17 13:51 Last Admin: 04/18/17 13:50 Dose: 30 ml Citric Acid/Sodium Citrate (Bicitra Solution) 30 ml PO ONETIME ONE Stop: 04/18/17 13:52 Diphenhydramine HCl (Benadryl) 25 mg IVPUSH Q6H PRN PRN Reason: pruritis Ephedrine Sulfate (Ephedrine In Ns) Confirm Administered Dose 25 mg .ROUTE .STK- MED ONE Stop: 04/18/17 14:43 Fentanyl (Sublimaze) 50 mcg IVPUSH Q5M PRN PRN Reason: Pain Lactated Ringer's (Ringers, Lactated) 1,000 mls @ 100 mls/hr IV ASDIRECTED [facility] Last Admin: 04/18/17 13:30 Dose: 100 mls/hr Lactated Ringer's (Ringers, Lactated) Confirm Administered Dose 2,000 mls @ as directed .ROUTE .STK-MED ONE Stop: 04/18/17 14:08 Dextrose/Lactated Ringer's (Dextrose 5%-Lactated Ringers) 1,000 mls @ 125 mls/ hr IV ASDIRECTED [facility] Stop: 04/18/17 23:49 Last Admin: 04/18/17 18:53 Dose: 125 mls/hr Ketorolac Tromethamine (Toradol) Confirm Administered Dose 30 mg .ROUTE .STK- MED ONE Stop: 04/18/17 14:08 Ketorolac Tromethamine (Toradol) 30 mg IVPUSH Q6H [facility] Stop: 04/19/17 08:01 Last Admin: 04/19/17 07:31 Dose: 30 mg Measles/Mumps/Rubella Vaccine Live (M-M-R Ii Vaccine) 0.5 ml SUBCUT .ONCE ONE Stop: 04/19/17 03:40 Last Admin: 04/20/17 06:43 Dose: 0.5 ml Meperidine HCl (Demerol) 12.5 mg IVPUSH ONETIME PRN PRN Reason: shivering Stop: 04/19/17 14:38 Metoclopramide HCl (Reglan) Confirm Administered Dose 10 mg .ROUTE .STK-MED ONE Stop: 04/18/17 13:49 Last Admin: 04/18/17 13:58 Dose: 10 mg Metoclopramide HCl (Reglan) 10 mg IVPUSH ONETIME ONE Stop: 04/18/17 13:52 Morphine Sulfate (Duramorph Pf) Confirm Administered Dose 10 mg .ROUTE .STK-MED ONE Stop: 04/18/17 14:08 Ondansetron HCl (Zofran) Confirm Administered Dose 4 mg .ROUTE .STK-MED ONE Stop: 04/18/17 14:08 Ondansetron HCl (Zofran) 4 mg IVPUSH ONETIME PRN PRN Reason: Nausea/Vomiting Oxytocin (Pitocin) Confirm Administered Dose 10 unit .ROUTE .STK-MED ONE Stop: 04/18/17 14:08 Sodium Chloride (Saline Flush) 10 ml FLUSH ASDIRECTED PRN PRN Reason: Keep Vein Open *Q Meaningful Use (DIS) - VTE *Q VTE Criteria *Q: - Stroke *Q Stroke Criteria *Q: - AMI *Q AMI Criteria *Q:
[2017-04-20 12:38] VITALS: BP 104/53
[2017-04-20] MEDS ORDERED: Bupivacaine/fentaNYL/NS 100 ML Bag EPIDUR SCH (12:45)
== END 2017-04-20 13:41 | disposition home or self-care (01) | DRG 766 ==
LOC: JD.OBCHECK 13:05 → JD.OB 13:27 → JD.OBCHECK 13:35 → JD.OB 13:36 → OBSVTOIN 14:49
PROVIDERS: ADMIT Obstetrics & Gynecology; ATTEND Obstetrics & Gynecology
PROC: 10D00Z1 Extraction of Products of Conception, Low, Open Approach (ICD-10-PCS; principal; 2017-04-18)
PROC: 10D07Z6 Extraction of Products of Conception, Vacuum, Via Natural or Artificial Opening (ICD-10-PCS; 2017-04-18)
DX: O42.12 Full-term premature rupture of membranes, onset of labor more than 24 hours following rupture (principal); O69.81X0 Labor and delivery complicated by cord around neck, without compression, not applicable or unspecified; O64.0XX0 Obstructed labor due to incomplete rotation of fetal head, not applicable or unspecified; Z3A.39 39 weeks gestation of pregnancy; Z37.0 Single live birth
CPT/HCPCS: 01961; 36415; 85025; 86850; 86900; 86901; 87075; 87077; 87186; 87205; 88307; 88307-26; 90707; 94762; A9270-GY; J0690; J0694; J1200; J1885; J2270; J2405; J2590; J2765; J7042; J7050; J7120

== ENCOUNTER 2017-06-03 02:45 | Observation (INO) | payer OTHER, MEDICAID ==
--- NOTE | 2017-06-03 03:33 | EDM.PDOC ---
ED HPI GENERAL MEDICAL PROBLEM - General Chief Complaint: Abdominal Pain Stated Complaint: [facility] Time Seen by Provider: 06/03/17 03:26 - History of Present Illness INITIAL COMMENTS - FREE TEXT/NARRATIVE: 21-year-old female transferred here with acute appendicitis. The patient was seen in [facility] diagnosed with acute uncomplicated appendicitis by CAT scan. The provider there did discuss the case with Dr. Walter who recommended transfer here for surgery later this morning. The patient did receive a gram of Invanz in [facility] The patient states she had abdominal pain started 2:00 yesterday afternoon she tried to tough it out but things progressively got worse [place] around 7 or 7:30 last evening she had a beer with this. She's had some nausea and right lower quadrant discomfort with this. Patient has remarkable history of having a section 7 weeks ago she was started on Depo-Provera around the end of April. She is not nursing. Abdominal Pain Score (Numeric/FACES): 8 - Related Data Allergies Allergy/AdvReac Type Severity Reaction Status Date / Time No Known Allergies Allergy Verified 06/03/17 02:57 Home Meds: Home Meds . 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: , Spontaneous Other OB/BYN History: - Past Surgical History Head Surgeries/Procedures: Reports: None HEENT Surgical History: Reports: None Cardiovascular Surgical History: Reports: None Respiratory Surgical History: Reports: None GI Surgical History: Reports: None Female Surgical History: Reports: None Endocrine Surgical History: Reports: None Neurological Surgical History: Reports: None Musculoskeletal Surgical History: Reports: None Oncologic Surgical History: Reports: None Dermatological Surgical History: Reports: None Social & Family History - Family History Family Medical History: Noncontributory - Tobacco Use Smoking Status *Q: Current Every Day Smoker Years of Tobacco use: 6 Packs/Tins Daily: 0.2 Used Tobacco, but Quit: No Second Hand Smoke Exposure: Yes - Caffeine Use Caffeine Use: Reports: Soda - Alcohol Use Days Per Week of Alcohol Use: 0 - Recreational Drug Use Recreational Drug Use: Yes Drug Use in Last 12 Months: Yes Recreational Drug Type: Reports: Marijuana/Hashish Recreational Drug Use Frequency: Daily - Living Situation & Occupation Living situation: Reports: Single Occupation: Unemployed ED ROS GENERAL - Review of Systems Review Of Systems: See Below Constitutional: Denies: Fever, Chills HEENT: Reports: No Symptoms Respiratory: Reports: No Symptoms Cardiovascular: Reports: No Symptoms GI/Abdominal: Reports: Abdominal Pain, Nausea, Vomiting. Denies: Constipation, Diarrhea : Reports: No Symptoms Musculoskeletal: Reports: No Symptoms Neurological: Reports: No Symptoms ED EXAM, GI/ABD - Physical Exam Exam: See Below Exam Limited By: No Limitations General Appearance: Alert, No Apparent Distress Respiratory/Chest: No Respiratory Distress, Lungs Clear, Normal Breath Sounds Cardiovascular: Regular Rate, Rhythm, No Edema, No Murmur GI/Abdominal Exam: Normal Bowel Sounds, Soft, Other (Patient has significant right lower quadrant discomfort with some mild rebound discomfort no rigidity or guarding) Course - Vital Signs Last Recorded V/S: Last Vital Signs Temp 36.4 C 06/03/17 02:53 Pulse 99 06/03/17 02:53 Resp 16 06/03/17 02:53 BP 120/75 06/03/17 02:53 Pulse Ox 100 06/03/17 02:53 - Orders/Labs/Meds Orders: Active Orders 24 hr Category Date Time Status ETHANOL BLOOD MEDICAL [CHEM] Stat Lab 06/03/17 03:33 Ordered HCG QUALITATIVE,SERUM [CHEM] Stat Lab 06/03/17 03:33 Ordered Lactated Ringers [Ringers, Lactated] 1,000 ml Med 06/03/17 03:45 Active IV ASDIRECTED Medication Orders Lactated Ringer's (Ringers, Lactated) 1,000 mls @ 125 mls/hr IV ASDIRECTED WILLIAM Meds: Medications Generic Name Dose Route Start Last Admin Trade Name Freq PRN Reason Stop Dose Admin Lactated Ringer's 1,000 mls @ 125 mls/hr 06/03/17 03:45 Ringers, Lactated IV ASDIRECTED WILLIAM Discontinued Medications Generic Name Dose Route Start Last Admin Trade Name Freq PRN Reason Stop Dose Admin Hydromorphone HCl 0.5 mg 06/03/17 03:34 Dilaudid IVPUSH 06/03/17 03:35 ONETIME ONE - Re-Assessments/Exams Free Text/Narrative Re-Assessment/Exam: 06/03/17 03:[address] Walter including my physical exam findings there is a pending EtOH and hCG. Patient will be taken to the floor for continued IV fluids anticipating surgery later today Departure - Departure Time of Disposition: 03:50 Disposition: Refer to Observation Clinical Impression: Acute appendicitis - Discharge Information Referrals: Shelly Atwood, GENERAL FARMWORKER [Primary Care Provider] - Forms: ED Department Discharge - My Orders Last 24 Hours: My Active Orders 06/03/17 03:33 ETHANOL BLOOD MEDICAL [CHEM] Stat HCG QUALITATIVE,SERUM [CHEM] Stat 06/03/17 03:45 Lactated Ringers [Ringers, Lactated] 1,000 ml IV ASDIRECTED - Assessment/Plan Last 24 Hours: My Active Orders 06/03/17 03:33 ETHANOL BLOOD MEDICAL [CHEM] Stat HCG QUALITATIVE,SERUM [CHEM] Stat 06/03/17 03:45 Lactated Ringers [Ringers, Lactated] 1,000 ml IV ASDIRECTED
[2017-06-03] MEDS ORDERED: HYDROmorphone 1 MG/ML Syringe IVPUSH ONE (03:34)
[2017-06-03] MEDS ORDERED: Lactated Ringers 1,000 ML IV SCH (03:45)
[2017-06-03] MEDS ORDERED: Ondansetron 4 MG/2 ML SDV IVPUSH PRN ×2 (05:34→08:19)
[2017-06-03] MEDS ORDERED: HYDROmorphone 0.5 MG/0.5 ML Syringe IVPUSH PRN ×2 (05:34→08:19)
[2017-06-03] MEDS ORDERED: Dextrose 5%-Lactated Ringers 1,000 ML IV SCH (05:45)
[2017-06-03] MEDS ORDERED: Lidocaine 1% with EPINEPHrine 1:100,000 20 ML MDV ONE (06:37)
[2017-06-03] MEDS ORDERED: Bupivacaine 0.5%/EPINEPHrine 1:200,000 50 ML MDV ONE (06:37)
--- NOTE | 2017-06-03 06:48 | PCM.HP ---
H&P History of Present Illness - General Date of Service: 06/03/17 Admit Problem/Dx: Admission Diagnosis/Problem Admission Diagnosis/Problem Acute appendicitis Source of Information: Patient History Limitations: Reports: No Limitations - History of Present Illness Initial Comments - Free Text/Narative: 21-year-old female felt ill yesterday complaining of abdominal pain. The pain migrated to her right lower quadrant over the next several hours and because of this discomfort she presented to the emergency room for evaluation. On exam she had right lower quadrant abdominal tenderness. A CT scan was performed and had imaging features consistent with acute appendicitis. She had a slightly elevated white blood cell count. I was called and accepted her for transfer to our hospital for an appendectomy. Abdominal Pain Score (Numeric/FACES): 8 - Related Data Allergies/Adverse Reactions: Allergies Allergy/AdvReac Type Severity Reaction Status Date / Time No Known Allergies Allergy Verified 06/03/17 02:57 Home Medications: Home Meds . 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: , Spontaneous Other OB/BYN History: - Past Surgical History Head Surgeries/Procedures: Reports: None HEENT Surgical History: Reports: None Cardiovascular Surgical History: Reports: None Respiratory Surgical History: Reports: None GI Surgical History: Reports: None Female Surgical History: Reports: None Endocrine Surgical History: Reports: None Neurological Surgical History: Reports: None Musculoskeletal Surgical History: Reports: None Oncologic Surgical History: Reports: None Dermatological Surgical History: Reports: None Social & Family History - Family History Family Medical History: Noncontributory - Tobacco Use Smoking Status *Q: Current Every Day Smoker Years of Tobacco use: 6 Packs/Tins Daily: 0.2 Used Tobacco, but Quit: No Second Hand Smoke Exposure: Yes - Caffeine Use Caffeine Use: Reports: Soda - Alcohol Use Days Per Week of Alcohol Use: 0 - Recreational Drug Use Recreational Drug Use: Yes Drug Use in Last 12 Months: Yes Recreational Drug Type: Reports: Marijuana/Hashish Recreational Drug Use Frequency: Daily - Living Situation & Occupation Living situation: Reports: Single Occupation: Unemployed H&P Review of Systems - Review of Systems: Review Of Systems: See Below Gastrointestinal: Reports: Abdominal Pain Exam - Exam Exam: See Below - Vital Signs Vital Signs: Last Vital Signs Temp 36.4 C 06/03/17 02:53 Pulse 99 06/03/17 02:53 Resp 16 06/03/17 02:53 BP 120/75 06/03/17 02:53 Pulse Ox 100 06/03/17 02:53 Weight: 83.915 kg - Exam General: Alert, Oriented, Cooperative HEENT: EOMI, Hearing Intact Neck: Supple, Trachea Midline Lungs: Clear to Auscultation, Normal Respiratory Effort Cardiovascular: Regular Rate, Regular Rhythm, Normal S1, Normal S2 GI/Abdominal Exam: Tender (McBurney's point tenderness) (Female) Exam: Deferred Rectal (Female) Exam: Deferred Back Exam: Full Range of Motion Extremities: Normal Inspection Skin: Warm, Dry, Intact Neuro Extensive - Mental Status: Alert, Oriented x3, Normal Mood/Affect, Normal Cognition, Other (Sleepy) Psychiatric: Normal Affect, Normal Mood - Patient Data Lab Results Last 24 hrs: Laboratory Results - last 24 hr 06/03/17 06/03/17 Range/Units 04:01 04:01 HCG, Qual Negative (NEGATIVE) Ethyl Alcohol 0.00 (0.00) gm% *Q Meaningful Use (ADM) - VTE *Q VTE Criteria *Q: - Stroke *Q Stroke Criteria *Q: - AMI *Q AMI Criteria *Q: - Problem List (1) Acute appendicitis SNOMED Code(s): 87220977 ICD Code: K35.80 - UNSPECIFIED ACUTE APPENDICITIS Status: Acute Priority : High Current Visit: Yes Qualifiers: Acute appendicitis type: unspecified acute appendicitis type Qualified Code (s): K35.80 - Unspecified acute appendicitis Problem List Initiated/Reviewed/Updated: Yes Orders Last 24hrs: Active Orders 24 hr Category Date Time Status Admission Status [Patient Status] [ADT] Routine ADT 06/03/17 05:33 Active Bedrest [RC] ASDIRECTED Care 06/03/17 05:35 Active Communication Order [RC] STAT Care 06/03/17 06:24 Active Patient to Empty Bladder [RC] ASDIRECTED Care 06/03/17 06:24 Active Verify Patient Consent Obtain [RC] ASDIRECTED Care 06/03/17 06:24 Active NPO Now [Nothing per Oral Now Diet] [DIET] Diet 06/03/17 Breakfast Active Dextrose 5%-Lactated Ringers 1,000 ml Med 06/03/17 05:45 Active IV ASDIRECTED HYDROmorphone [Dilaudid] Med 06/03/17 05:34 Active 0.5 mg IVPUSH Q3H PRN Ondansetron [Zofran] Med 06/03/17 05:34 Active 4 mg IVPUSH Q4H PRN Code Status [Resuscitation Status] Routine Resus Stat 06/03/17 05:36 Ordered Medication Orders Hydromorphone HCl (Dilaudid) 0.5 mg IVPUSH Q3H PRN PRN Reason: Pain Lactated Ringer's (Ringers, Lactated) 1,000 mls @ 125 mls/hr IV ASDIRECTED [facility] Last Admin: 06/03/17 03:51 Dose: 125 mls/hr Dextrose/Lactated Ringer's (Dextrose 5%-Lactated Ringers) 1,000 mls @ 125 mls/ hr IV ASDIRECTED [facility] Ondansetron HCl (Zofran) 4 mg IVPUSH Q4H PRN PRN Reason: Nausea Assessment/Plan Comment:: imp: Acute appendicitis plan: Laparoscopic possible open appendectomy. The benefits and risk of the procedure as well as the alternatives were explained to the patient and her family members who are present. She wanted me to proceed as soon as possible.
[2017-06-03] MEDS ORDERED: Pneumococcal Polyvalent-23 Vaccine 0.5 ML SDV SUBCUT ONE (06:53)
[2017-06-03] MEDS ORDERED: Ondansetron 4 MG/2 ML SDV ONE (06:54)
[2017-06-03] MEDS ORDERED: Dexamethasone 4 MG/ML SDV ONE (06:54)
[2017-06-03] MEDS ORDERED: fentaNYL 250 MCG/5 ML SDV ONE (06:54)
[2017-06-03] MEDS ORDERED: Lidocaine 1% 4 ML ONE (06:54)
[2017-06-03] MEDS ORDERED: Midazolam 1 MG/ML 2 ML SDV ONE (06:54)
[2017-06-03] MEDS ORDERED: Propofol 200 MG/20 ML SDV ONE (06:54)
[2017-06-03] MEDS ORDERED: Rocuronium 50 MG/5 ML Vial ONE (06:54)
--- NOTE | 2017-06-03 07:04 | PCM.PREANE ---
Preanesthetic Assessment - Procedure Proposed Procedure: Lap APPY - Anesthesia/Transfusion/Family Hx Anesthesia History: No Prior Anesthesia Family History of Anesthesia Reaction: No Transfusion History: No Prior Transfusion(s) - Review of Systems General: No Symptoms Pulmonary: No Symptoms Cardiovascular: No Symptoms Gastrointestinal: Abdominal Pain, Nausea, Vomiting Neurological: No Symptoms Other: Reports: None - Physical Assessment NPO Status Date: 06/02/17 NPO Status Time: 19:30 O2 Sat by Pulse Oximetry: 100 Respiratory Rate: 16 Vital Signs: Last Vital Signs Temp 36.4 C 06/03/17 02:53 Pulse 99 06/03/17 02:53 Resp 16 06/03/17 02:53 BP 120/75 06/03/17 02:53 Pulse Ox 100 06/03/17 02:53 Height: 1.78 m Weight: 83.915 kg ASA Class: 1E Mental Status: Alert & Oriented x3 Airway Class: Mallampati = 1 Dentition: Reports: Missing Tooth/Teeth (molars x2) ROM/Head Extension: Full Lungs: Clear to Auscultation, Normal Respiratory Effort Cardiovascular: Regular Rate, Regular Rhythm - Lab Values: Laboratory Last Values HCG, Qual Negative (NEGATIVE) 06/03/17 04:01 Ethyl Alcohol 0.00 gm% (0.00) 06/03/17 04:01 - Allergies Allergies/Adverse Reactions: Allergies Allergy/AdvReac Type Severity Reaction Status Date / Time No Known Allergies Allergy Verified 06/03/17 02:57 - Blood Blood Available: No Product(s) Available: None - Anesthesia Plan Pre-Op Medication Ordered: None - Acknowledgements Anesthesia Type Planned: General Anesthesia Pt an Appropriate Candidate for the Planned Anesthesia: Yes Alternatives and Risks of Anesthesia Discussed w Pt/Guardian: Yes Pt/Guardian Understands and Agrees with Anesthesia Plan: Yes PreAnesthesia Questionnaire - Past Health History Medical/Surgical History: Denies Medical/Surgical History Cardiovascular History: Reports: None Respiratory History: Reports: None 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: , Spontaneous Other OB/BYN History: - Past Surgical History Head Surgeries/Procedures: Reports: None HEENT Surgical History: Reports: None Cardiovascular Surgical History: Reports: None Respiratory Surgical History: Reports: None GI Surgical History: Reports: None Female Surgical History: Reports: None Endocrine Surgical History: Reports: None Neurological Surgical History: Reports: None Musculoskeletal Surgical History: Reports: None Oncologic Surgical History: Reports: None Dermatological Surgical History: Reports: None - SUBSTANCE USE Smoking Status *Q: Current Every Day Smoker Tobacco Use Within Last Twelve Months: Cigarettes Second Hand Smoke Exposure: Yes Days Per Week of Alcohol Use: 0 Recreational Drug Use History: Yes Recreational Drug Type: Reports: Marijuana/Hashish - HOME MEDS Home Medications: Home Meds . [No Known Home Meds] 06/03/17 [History] - CURRENT (IN HOUSE) MEDS Current Meds: Current Medications Hydromorphone HCl (Dilaudid) 0.5 mg IVPUSH Q3H PRN PRN Reason: Pain Lactated Ringer's (Ringers, Lactated) 1,000 mls @ 125 mls/hr IV ASDIRECTED [facility] Last Admin: 06/03/17 03:51 Dose: 125 mls/hr Dextrose/Lactated Ringer's (Dextrose 5%-Lactated Ringers) 1,000 mls @ 125 mls/ hr IV ASDIRECTED [facility] Ondansetron HCl (Zofran) 4 mg IVPUSH Q4H PRN PRN Reason: Nausea Pneumococcal Polyvalent Vaccine (Pneumovax 23) 0.5 ml SUBCUT .ONCE ONE Stop: 06/03/17 06:54 Discontinued Medications Bupivacaine HCl/Epinephrine Bitart (Marcaine 0.5%/Epinephrine 1:200,000) Confirm Administered Dose 50 ml .ROUTE .STK-MED ONE Stop: 06/03/17 06:38 Dexamethasone (Dexamethasone) Confirm Administered Dose 4 mg .ROUTE .STK-MED ONE Stop: 06/03/17 06:55 Fentanyl (Sublimaze) Confirm Administered Dose 250 mcg .ROUTE .STK-MED ONE Stop: 06/03/17 06:55 Hydromorphone HCl (Dilaudid) 0.5 mg IVPUSH ONETIME ONE Stop: 06/03/17 03:35 Last Admin: 06/03/17 03:52 Dose: 0.5 mg Lidocaine HCl (Xylocaine-Mpf 1%) Confirm Administered Dose 4 mls @ as directed .ROUTE .STK-MED ONE Stop: 06/03/17 06:55 Lidocaine/Epinephrine (Xylocaine 1% With Epinephrine 1:100,000) Confirm Administered Dose 20 ml .ROUTE .STK-MED ONE Stop: 06/03/17 06:38 Midazolam HCl (Versed 1 Mg/Ml) Confirm Administered Dose 2 mg .ROUTE .STK-MED ONE Stop: 06/03/17 06:55 Ondansetron HCl (Zofran) Confirm Administered Dose 4 mg .ROUTE .STK-MED ONE Stop: 06/03/17 06:55 Propofol (Diprivan 20 Ml) Confirm Administered Dose 200 mg .ROUTE .STK-MED ONE Stop: 06/03/17 06:55 Rocuronium [place] (Zemuron) Confirm Administered Dose 50 mg .ROUTE .STK-MED ONE Stop: 06/03/17 06:55
[2017-06-03] MEDS ORDERED: HYDROmorphone 1 MG/ML Syringe ONE (07:35)
[2017-06-03] MEDS ORDERED: Neostigmine Methylsulfate 10 MG/10 ML MDV ONE (07:59)
[2017-06-03] MEDS ORDERED: fentaNYL 100 MCG/2 ML SDV ONE (08:00)
--- NOTE | 2017-06-03 08:18 | PCM.POSTAN ---
POST ANESTHESIA ASSESSMENT - MENTAL STATUS Mental Status: Alert, Oriented - VITAL SIGNS Pulse Rate: 99 SaO2: 99 Resp Rate: 20 Blood Pressure: 133/78 Temperature: 36.7 C - RESPIRATORY Respiratory Status: Respiratory Rate WNL, Airway Patent, O2 Saturation Stable, Supplemental Oxygen - CARDIOVASCULAR CV Status: Pulse Rate WNL, Blood Pressure Stable - GASTROINTESTINAL GI Status: No Symptoms - PAIN Pain Score: 0 - POST OP HYDRATION Hydration Status: Adequate & Stable
[2017-06-03] MEDS ORDERED: Meperidine PF 50 MG/ML Syringe IVPUSH PRN (08:19)
[2017-06-03] MEDS ORDERED: fentaNYL 100 MCG/2 ML SDV IVPUSH PRN (08:19)
[2017-06-03] MEDS ORDERED: diphenhydrAMINE 50 MG/ML SDV IVPUSH PRN (08:19)
[2017-06-03] MEDS ORDERED: Ketorolac 30 MG/ML SDV ONE (08:20)
--- NOTE | 2017-06-03 08:34 | PCM.OPNOTE ---
- General Post-Op/Procedure Note Date of Surgery/Procedure: 06/03/17 Operative Procedure(s): Laparoscopic appendectomy Findings: Acute suppurative appendicitis Pre Op Diagnosis: Acute appendicitis Post-Op Diagnosis: Acute suppurative appendicitis Anesthesia Technique: General ET Tube, Local Primary Surgeon: Donald Walter Pathology: Appendix EBL in mLs: 3 Complications: None Condition: Good Free Text/Narrative:: Intake & Output 06/02/17 06/03/17 06/03/17 22:59 06:59 14:59 Intake Total 125 Balance 125 After adequate IV sedation and analgesia was obtained the patient was positioned prepped and draped for a laparoscopic appendectomy in the usual fashion. A supraumbilical incision was made with a 15 blade after local analgesia. The incision was deepened to the midline fascia which was opened with a 15 blade. A 12 mm camera port was inserted followed by CO2 pneumoperitoneum. 2--5 mm working ports were placed in the suprapubic region and the left lower quadrant respectively. Exploration revealed the findings above. I mobilized the cecum slightly along the white line sharply. I then made a window in the appendiceal mesentery with the scissors. Several staple loads were used to transect the base of the appendix as well as its mesentery. The appendix was placed in a bag and removed the umbilicus. I irrigated out the right lower quadrant with saline. I decannulated the abdomen under direct vision. There was no bleeding from the port sites. The supraumbilical incision was closed with a [id number] 0 Vicryl. Subcutaneous tissues and skin were closed with Vicryl as well. Photographs were taken for the patient for the medical record. There were no complications.
[2017-06-03] MEDS ORDERED: Haloperidol Lactate 5 MG/ML SDV IVPUSH SCH (09:03)
[2017-06-03 10:36] VITALS: BP 118/75
--- NOTE | 2017-06-03 13:30 | PCM48HPAN ---
Post Anesthesia Note - EVALUATION WITHIN 48HRS OF ANESTHETIC Vital Signs in Normal Range: Yes Patient Participated in Evaluation: No (Pt discharged home, doing well per nurse ) Respiratory Function Stable: Yes Airway Patent: Yes Cardiovascular Function Stable: Yes Hydration Status Stable: Yes Pain Control Satisfactory: Yes Nausea and Vomiting Control Satisfactory: Yes Mental Status Recovered: Yes
--- NOTE | 2017-06-06 00:11 | PCM.DCSUM1 ---
Discharge Summary - Hospital Course Free Text/Narrative:: Uneventful course - Discharge Data Discharge Date: 06/03/17 Discharge Disposition: Home, Self-Care 01 Condition: Good - Discharge Diagnosis/Problem(s) (1) Acute appendicitis SNOMED Code(s): 09112585 ICD Code: K35.80 - UNSPECIFIED ACUTE APPENDICITIS Status: Resolved Priority: High Qualifiers: Acute appendicitis type: unspecified acute appendicitis type Qualified Code (s): K35.80 - Unspecified acute appendicitis - Patient Summary/Data Operative Procedure(s) Performed: Laparoscopic appendectomy Complications: None Hospital Course: See above. - Patient Instructions Diet: Usual Diet as Tolerated Activity: As Tolerated, Rest and Relax Today Driving: Do Not Drive (For 48 hours) Showering/Bathing: May Shower in 3 Days (Remove outer gauze dressing before shower. Leave Steri-Strips in place. The Steri-Strips can get wet in the shower. ) Wound/Incision Care: Keep Operative Site/Wound Site Clean and Dry (But do not apply ointments.) Notify Provider of: Fever Other/Special Instructions: There will be some pain around the bellybutton. This is normal and is to be expected. - Discharge Plan Home Medications: Home Meds . [No Known Home Meds] 06/03/17 [History] Patient Handouts: Smoking Cessation, Tips for Success, Laparoscopic Appendectomy, Adult, Care After, [id number], Appendicitis, Aquf-[id number] Forms: ED Department Discharge Referrals: Shelly Atwood NP [Primary Care Provider] - Donald Walter MD [Physician] - 06/10/17 10:45 am (Routine postoperative follow-up visit in one week or so) - Discharge Summary/Plan Comment DC Time >30 min.: No Discharge Summary/Plan Comment: Patient satisfied all discharge criteria and was discharged from the PACU. - Patient Data Vitals - Most Recent: Last Vital Signs Temp 36.2 C 06/03/17 10:30 Pulse 63 06/03/17 10:30 Resp 18 06/03/17 10:30 BP 118/75 06/03/17 10:30 Pulse Ox 96 06/03/17 10:30 Weight - Most Recent: 83.915 kg Med Orders - Current: Current Medications Discontinued Medications Bupivacaine HCl/Epinephrine Bitart (Marcaine 0.5%/Epinephrine 1:200,000) Confirm Administered Dose 50 ml .ROUTE .STK-MED ONE Stop: 06/03/17 06:38 Last Admin: 06/03/17 07:36 Dose: 10 ml Dexamethasone (Dexamethasone) Confirm Administered Dose 4 mg .ROUTE .STK-MED ONE Stop: 06/03/17 06:55 Diphenhydramine HCl (Benadryl) 25 mg IVPUSH Q6H PRN PRN Reason: Pruritis Stop: 06/03/17 11:00 Fentanyl (Sublimaze) Confirm Administered Dose 250 mcg .ROUTE .STK-MED ONE Stop: 06/03/17 06:55 Fentanyl (Sublimaze) Confirm Administered Dose 100 mcg .ROUTE .STK-MED ONE Stop: 06/03/17 08:01 Fentanyl (Sublimaze) 50 mcg IVPUSH Q5M PRN PRN Reason: Pain Stop: 06/03/17 11:00 Glycopyrrolate () Confirm Administered Dose 2 mg .ROUTE .STK-MED ONE Stop: 06/03/17 08:00 Haloperidol Lactate (Haldol) 1 mg IVPUSH ONETIME WILLIAM Stop: 06/03/17 16:00 Last Admin: 06/03/17 09:07 Dose: 1 mg Hydromorphone HCl (Dilaudid) 0.5 mg IVPUSH ONETIME ONE Stop: 06/03/17 03:35 Last Admin: 06/03/17 03:52 Dose: 0.5 mg Hydromorphone HCl (Dilaudid) 0.5 mg IVPUSH Q3H PRN PRN Reason: Pain Hydromorphone HCl (Dilaudid) Confirm Administered Dose 1 mg .ROUTE .STK-MED ONE Stop: 06/03/17 07:36 Hydromorphone HCl (Dilaudid) 0.5 mg IVPUSH Q15M PRN PRN Reason: Pain (severe 7-10) Stop: 06/03/17 11:00 Lactated Ringer's (Ringers, Lactated) 1,000 mls @ 125 mls/hr IV ASDIRECTED [facility] Last Admin: 06/03/17 03:51 Dose: 125 mls/hr Dextrose/Lactated Ringer's (Dextrose 5%-Lactated Ringers) 1,000 mls @ 125 mls/ hr IV ASDIRECTED [facility] Lidocaine HCl (Xylocaine-Mpf 1%) Confirm Administered Dose 4 mls @ as directed .ROUTE .STK-MED ONE Stop: 06/03/17 06:55 Ketorolac Tromethamine (Toradol) Confirm Administered Dose 30 mg .ROUTE .STK- MED ONE Stop: 06/03/17 08:21 Lidocaine/Epinephrine (Xylocaine 1% With Epinephrine 1:100,000) Confirm Administered Dose 20 ml .ROUTE .STK-MED ONE Stop: 06/03/17 06:38 Last Admin: 06/03/17 07:36 Dose: 10 ml Meperidine HCl (Demerol) 12.5 mg IVPUSH ONETIME PRN PRN Reason: Shivering Stop: 06/03/17 22:00 Midazolam HCl (Versed 1 Mg/Ml) Confirm Administered Dose 2 mg .ROUTE .STK-MED ONE Stop: 06/03/17 06:55 Neostigmine Methylsulfate (Neostigmine Methylsulfate) Confirm Administered Dose 10 mg .ROUTE .ST-MED ONE Stop: 06/03/17 08:00 Ondansetron HCl (Zofran) 4 mg IVPUSH Q4H PRN PRN Reason: Nausea Ondansetron HCl (Zofran) Confirm Administered Dose 4 mg .ROUTE .ST-MED ONE Stop: 06/03/17 06:55 Ondansetron HCl (Zofran) 4 mg IVPUSH ONETIME PRN PRN Reason: Nausea/Vomiting Stop: 06/03/17 11:00 Last Admin: 06/03/17 08:49 Dose: 4 mg Pneumococcal Polyvalent Vaccine (Pneumovax 23) 0.5 ml SUBCUT .ONCE ONE Stop: 06/03/17 06:54 Last Admin: 06/03/17 10:50 Dose: Not Given Propofol (Diprivan 20 Ml) Confirm Administered Dose 200 mg .ROUTE .STK-MED ONE Stop: 06/03/17 06:55 Rocuronium [place] (Zemuron) Confirm Administered Dose 50 mg .ROUTE .STK-MED ONE Stop: 06/03/17 06:55 *Q Meaningful Use (DIS) - VTE *Q VTE Criteria *Q: - Stroke *Q Stroke Criteria *Q: - AMI *Q AMI Criteria *Q:
== END 2017-06-03 10:30 | disposition home or self-care (01) ==
LOC: JD.ED 02:45 → JD.MS 03:54
PROVIDERS: ADMIT Surgery; ATTEND Surgery
DX: K35.80 Unspecified acute appendicitis (principal)
CPT/HCPCS: 36415; 44970; 84703; 96361; 96374; 99285; G0378; G0480; J1100; J1170; J1630; J1885; J2250; J2405; J2710; J3010; J7120; 00840; 99284; J2704

== ENCOUNTER 2017-10-04 15:49 | Emergency (ER) | payer MEDICAID, OTHER ==
[2017-10-04 16:55] VITALS: BP 115/77
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
== END 2017-10-04 18:45 | disposition home or self-care (01) ==
LOC: JD.ED 15:49
DX: K12.0 Recurrent oral aphthae (principal); F17.210 Nicotine dependence, cigarettes, uncomplicated
CPT/HCPCS: 99282; 99283

== ENCOUNTER 2021-08-11 01:47 | Emergency (ER) | payer MEDICAID ==
--- NOTE | 2021-08-11 02:23 | EDM.PDOC ---
ED HPI GENERAL MEDICAL PROBLEM - General Chief Complaint: Respiratory Problem Stated Complaint: SOB/WEAK-COVID+ Time Seen by Provider: 08/11/21 02:30 Source of Information: Reports: Patient, EMS History Limitations: Reports: Intoxication - History of Present Illness INITIAL COMMENTS - FREE TEXT/NARRATIVE: Patient is a 26-year-old female who is complaining having fever chills with body aches and nonproductive cough and now is nauseous with vomiting. Patient is positive for Covid and has not been vaccinated. She denies any swelling to her ankles or calfs. She denies any bloody or tarry stools. She is complaining of feeling achy all over but worse in her back. Denies any dysuria or any abdominal pain. Does not have a headache or sore throat. She denies any loss of taste or smell. Duration: Day(s): (3 days), Getting Worse Location: Reports: Chest Quality: Reports: Ache Severity: Moderate Improves with: Reports: None Worsens with: Reports: Breathing Associated Symptoms: Reports: cough w sputum, Fever/Chills, Loss of Appetite, Nausea/Vomiting, Shortness of Breath Chest Pain Score (Numeric/FACES): 8 - Related Data Allergies Allergy/AdvReac Type Severity Reaction Status Date / Time No Known Allergies Allergy Verified 08/11/21 02:18 Home Meds: Home Meds Azithromycin 250 mg PO DAILY #6 tablet 08/11/21 [Rx] Hydrocodone/Acetaminophen [HYDROcodone-Acetaminophen 5-325 MG] 1 each PO Q6HR #10 tab 08/11/21 [Rx] Ondansetron [Zofran ODT] 4 mg PO Q6H PRN #10 tab.dis 08/11/21 [Rx] predniSONE [Prednisone] 20 mg PO DAILY #5 tablet 08/11/21 [Rx] Past Medical History - Past Health History Medical/Surgical History: Denies Medical/Surgical History Cardiovascular History: Reports: None Respiratory History: Reports: None Gastrointestinal History: Reports: Other (See Below) EMERGENCY DISPATCHER History: Reports: , Spontaneous Other EMERGENCY DISPATCHER History: Dermatologic History: Reports: Other (See Below) Other Dermatologic History: pt reports that she has a heat rash right now and is scratching her arms. she has a couple of simran sized round pink areas to her arms that look like psioriases - Past Surgical History GI Surgical History: Reports: Appendectomy Social & Family History - Family History Family Medical History: No Pertinent Family History - Caffeine Use Caffeine Use: Reports: Soda, Tea Caffeine Use Comment: daily - Living Situation & Occupation Living situation: Reports: Single Occupation: Unemployed ED ROS GENERAL - Review of Systems Review Of Systems: Comprehensive ROS is negative, except as noted in HPI. Constitutional: Reports: Fever, Chills, Malaise, Fatigue Respiratory: Reports: Shortness of Breath, Cough, Sputum GI/Abdominal: Reports: Nausea, Vomiting Skin: Reports: No Symptoms Neurological: Reports: No Symptoms Psychiatric: Reports: Agitation ED EXAM, GENERAL - Physical Exam Exam: See Below Exam Limited By: No Limitations General Appearance: Alert, Moderate Distress Head: Atraumatic, Normocephalic Neck: Normal Inspection, Supple Respiratory/Chest: No Respiratory Distress, Lungs Clear, Normal Breath Sounds Cardiovascular: Regular Rate, Rhythm, No JVD GI/Abdominal: Normal Bowel Sounds, Soft, Non-Tender Back Exam: Normal Inspection, Full Range of Motion Extremities: Normal Inspection Neurological: Alert, Normal Cognition Psychiatric: Normal Affect Skin Exam: Warm, Dry Course - Vital Signs Text/Narrative:: Patient was given IV fluids antiemetics Toradol and Regeneron. She is feeling much better at this point. I will send her home with some Jermain and a few Quapaw. Patient was also be continued on prednisone and a Z-Wenceslao. Last Recorded V/S: Last Vital Signs Temp 97.6 F 08/11/21 04:30 Pulse 90 08/11/21 04:30 Resp 20 08/11/21 04:30 BP 133/95 H 08/11/21 04:30 Pulse Ox 98 08/11/21 04:30 - Orders/Labs/Meds Orders: Active Orders 24 hr Category Date Time Status Vital Signs [RC] Q15M Care 08/11/21 02:34 Active EPINEPHrine [Adrenalin] Med 08/11/21 02:34 Active 0.3 mg IM ASDIRECTED PRN Famotidine [Pepcid] Med 08/11/21 02:34 Active 20 mg IVPUSH ASDIRECTED PRN Sodium Chloride 0.9% [Saline Flush] Med 08/11/21 02:45 Active 30 ml FLUSH ASDIRECTED diphenhydrAMINE [Benadryl] Med 08/11/21 02:34 Active 50 mg IVPUSH ASDIRECTED PRN methylPREDNISolone Sod Succ [Solu-MEDROL] Med 08/11/21 02:34 Active 125 mg IVPUSH ASDIRECTED PRN Medication Orders Diphenhydramine HCl (Diphenhydramine 50 Mg/Ml Sdv) 50 mg IVPUSH ASDIRECTED PRN PRN Reason: hypersensitivity reaction Epinephrine HCl (Epinephrine 1 Mg/Ml Sdv) 0.3 mg IM ASDIRECTED PRN PRN Reason: hypersensitivity reaction Famotidine (Famotidine 20 Mg/2 Ml Sdv) 20 mg IVPUSH ASDIRECTED PRN PRN Reason: hypersensitivity reaction Methylprednisolone Sodium Succinate (Methylprednisolone Sodium Succinate 125 Mg/2 Ml Sdv) 125 mg IVPUSH ASDIRECTED PRN PRN Reason: hypersensitivity reaction Sodium Chloride (Sodium Chloride 0.9% 10 Ml Syringe) 30 ml FLUSH ASDIRECTED WILLIAM Labs: Laboratory Tests 08/11/21 08/11/21 Range/Units 03:00 03:00 WBC 6.84 (3.98-10.04) K/mm3 RBC 5.56 H (3.98-5.22) M/mm3 Hgb 17.4 H D (11.2-15.7) gm/dl Hct 50.5 H (34.1-44.9) % MCV 90.8 D (79.4-94.8) fl MCH 31.3 (25.6-32.2) pg MCHC 34.5 (32.2-35.5) g/dl RDW Std Deviation 48.0 H (36.4-46.3) fL Plt Count 176 L (182-369) K/mm3 MPV 10.1 (9.4-12.3) fl Neutrophils % (Manual) 63 H (40-60) % Band Neutrophils % 0 (0-10) % Lymphocytes % (Manual) 34 (20-40) % Atypical Lymphs % 0 % Monocytes % (Manual) 2 (2-10) % Eosinophils % (Manual) 0 L (0.7-5.8) % Basophils % (Manual) 1 (0.1-1.2) Platelet Estimate Adequate Anisocytosis 1+ slight RBC Morph Comment Abnormal Sodium 143 (136-145) mEq/L Potassium 4.4 (3.5-5.1) mEq/L Chloride 101 (98-107) mEq/L Carbon Dioxide 22 (21-32) mEq/L Anion Gap 24.4 H (5-15) BUN 5 L (7-18) mg/dL Creatinine 0.7 (0.55-1.02) mg/dL Est Cr Clr Drug Dosing TNP Estimated GFR (MDRD) > 60 (>60) mL/min BUN/Creatinine Ratio 7.1 L (14-18) Glucose 117 H (70-99) mg/dL Calcium 8.0 L (8.5-10.1) mg/dL Total Bilirubin 1.2 H (0.2-1.0) mg/dL AST 286 H (15-37) U/L ALT 285 H (14-59) U/L Alkaline Phosphatase 138 H (46-116) U/L Total Protein 7.7 (6.4-8.2) g/dl Albumin 3.6 (3.4-5.0) g/dl Globulin 4.1 gm/dL Albumin/Globulin Ratio 0.9 L (1-2) Meds: Medications Generic Name Dose Route Start Last Admin Trade Name Freq PRN Reason Stop Dose Admin Diphenhydramine HCl 50 mg 08/11/21 02:34 Diphenhydramine 50 Mg/Ml Sdv IVPUSH ASDIRECTED PRN hypersensitivity reaction Epinephrine HCl 0.3 mg 08/11/21 02:34 Epinephrine 1 Mg/Ml Sdv IM ASDIRECTED PRN hypersensitivity reaction Famotidine 20 mg 08/11/21 02:34 Famotidine 20 Mg/2 Ml Sdv IVPUSH ASDIRECTED PRN hypersensitivity reaction Methylprednisolone Sodium Succinate 125 mg 08/11/21 02:34 Methylprednisolone Sodium Succinate 125 Mg/2 Ml Sdv IVPUSH ASDIRECTED PRN hypersensitivity reaction Sodium Chloride 30 ml 08/11/21 02:45 Sodium Chloride 0.9% 10 Ml Syringe FLUSH ASDIRECTED WILLIAM Discontinued Medications Generic Name Dose Route Start Last Admin Trade Name Freq PRN Reason Stop Dose Admin Sodium Chloride 1,000 mls @ 1,000 mls/hr 08/11/21 02:33 08/11/21 03:05 Normal Saline IV 08/11/21 03:32 1,000 mls/hr ONETIME ONE Administration CASIRIVIMAB/IMDEVIMAB 10 ml/ 110 mls @ 220 mls/hr 08/11/21 02:34 08/11/21 03:52 Sodium Chloride IV 08/11/21 03:03 220 mls/hr ONETIME ONE Administration Ketorolac Tromethamine 30 mg 08/11/21 02:33 08/11/21 03:05 Ketorolac 30 Mg/Ml Sdv IVPUSH 08/11/21 02:34 30 mg ONETIME ONE Administration Ondansetron HCl 4 mg 08/11/21 02:33 08/11/21 03:05 Ondansetron 4 Mg/2 Ml Sdv IVPUSH 08/11/21 02:34 4 mg ONETIME ONE Administration Departure - Departure Time of Disposition: 04:53 Disposition: Home, Self-Care 01 Condition: Good Clinical Impression: COVID-19 - Discharge Information Instructions: Symptoms of COVID-19 - CDC (11/25/2020) Referrals: Shelly Atwood [employer] TECHNICIAN [Primary Care Provider] - Forms: ED Department Discharge Additional Instructions: Medicines as prescribed. Return to ER symptoms are worse. When you are better please get vaccinated for COVID-19. Follow-up with PCP if not improving. Sepsis Event Note (ED) - Evaluation Sepsis Screening Result: Possible Sepsis Risk - Focused Exam Vital Signs: Vital Signs Temp Pulse Resp BP Pulse Ox 08/11/21 04:30 97.6 F 90 20 133/95 H 98 08/11/21 04:15 97.4 F 85 21 H 130/91 H 95 08/11/21 03:53 97.4 F 89 26 H 134/96 H 97 08/11/21 02:05 96.4 F L 98 30 H 119/91 H 96 - My Orders Last 24 Hours: My Active Orders 08/11/21 02:34 Vital Signs [RC] Q15M EPINEPHrine [Adrenalin] 0.3 mg IM ASDIRECTED PRN Famotidine [Pepcid] 20 mg IVPUSH ASDIRECTED PRN diphenhydrAMINE [Benadryl] 50 mg IVPUSH ASDIRECTED PRN methylPREDNISolone Sod Succ [Solu-MEDROL] 125 mg IVPUSH ASDIRECTED PRN 08/11/21 02:45 Sodium Chloride 0.9% [Saline Flush] 30 ml FLUSH ASDIRECTED - Assessment/Plan Last 24 Hours: My Active Orders 08/11/21 02:34 Vital Signs [RC] Q15M EPINEPHrine [Adrenalin] 0.3 mg IM ASDIRECTED PRN Famotidine [Pepcid] 20 mg IVPUSH ASDIRECTED PRN diphenhydrAMINE [Benadryl] 50 mg IVPUSH ASDIRECTED PRN methylPREDNISolone Sod Succ [Solu-MEDROL] 125 mg IVPUSH ASDIRECTED PRN 08/11/21 02:45 Sodium Chloride 0.9% [Saline Flush] 30 ml FLUSH ASDIRECTED
[2021-08-11] MEDS ORDERED: Sodium Chloride 0.9% 1,000 ML IV ONE (02:33)
[2021-08-11] MEDS ORDERED: Ondansetron 4 MG/2 ML SDV IVPUSH ONE (02:33)
[2021-08-11] MEDS ORDERED: Ketorolac 30 MG/ML SDV IVPUSH ONE (02:33)
[2021-08-11] MEDS ORDERED: Famotidine 20 MG/2 ML SDV IVPUSH PRN (02:34)
[2021-08-11] MEDS ORDERED: EPINEPHrine 1 MG/ML SDV IM PRN (02:34)
[2021-08-11] MEDS ORDERED: methylPREDNISolone Sodium Succinate 125 MG/2 ML SDV IVPUSH PRN (02:34)
[2021-08-11] MEDS ORDERED: diphenhydrAMINE 50 MG/ML SDV IVPUSH PRN (02:34)
[2021-08-11] MEDS ORDERED: Sodium Chloride 0.9% 10 ML Syringe FLUSH SCH (02:45)
[2021-08-11 04:44] VITALS: BP 133/95; PULSE 90
[2021-08-11] MEDS ORDERED: HYDROmorphone 1 MG/ML Syringe IVPUSH ONE (05:00)
== END 2021-08-11 05:34 | disposition home or self-care (01) ==
LOC: JD.ED 01:47
DX: U07.1 COVID-19 (principal)
CPT/HCPCS: 36415; 80053; 85007; 85027; 96374; 96375; 99284; J1885; J2405; J7030; M0243; Q0243

== ENCOUNTER 2021-12-08 03:28 | Inpatient (IN) | payer MEDICAID ==
[2021-12-08] MEDS ORDERED: Promethazine 12.5 MG in Sodium Chloride 0.9% 50 ML IV ONE (03:36)
[2021-12-08] MEDS ORDERED: diphenhydrAMINE 50 MG/ML SDV IVPUSH ONE ×2 (03:36→03:55)
[2021-12-08] MEDS ORDERED: Haloperidol Lactate 5 MG/ML SDV ONE (03:50)
[2021-12-08] MEDS ORDERED: LORazepam 2 MG/ML SDV ONE (03:51)
[2021-12-08] MEDS ORDERED: LORazepam 2 MG/ML SDV IVPUSH ONE (03:52)
[2021-12-08] MEDS ORDERED: Haloperidol Lactate 5 MG/ML SDV IVPUSH ONE (03:52)
[2021-12-08] MEDS ORDERED: diphenhydrAMINE 50 MG/ML SDV ONE (04:07)
[2021-12-08 04:27] LABS: ACETAMINOPHEN 89 ug/mL (10-30)
[2021-12-08] MEDS ORDERED: Acetylcysteine 15,000 MG in Dextrose 5% in Water 200 ML IV ONE ×2 (08:00)
[2021-12-08] MEDS ORDERED: Ondansetron 4 MG/2 ML SDV IV PRN (08:45)
[2021-12-08] MEDS ORDERED: Acetylcysteine 5,000 MG in Dextrose 5% in Water 500 ML IV ONE ×2 (09:00)
[2021-12-08] MEDS: Promethazine 12.5 MG in Sodium Chloride 0.9% 50 ML IV PRN (09:17)
[2021-12-08] MEDS: Enoxaparin 40 MG/0.4 ML Syringe SUBCUT SCH (09:20)
[2021-12-08] MEDS: Sodium Chloride 0.9% 1,000 ML IV SCH (09:24)
[2021-12-08] MEDS ORDERED: LORazepam 2 MG/ML SDV IVPUSH PRN (10:40)
[2021-12-08] MEDS: LORazepam 2 MG/ML SDV IVPUSH PRN ×3 (11:32→17:15)
[2021-12-08] MEDS ORDERED: Acetylcysteine 10,000 MG in Dextrose 5% in Water 1,000 ML IV ONE ×2 (13:00)
[2021-12-08] MEDS ORDERED: FLU Vacc QS2021-22 36MOS UP/PF 60 MCG/0.5 ML Syringe IM ONE (15:30)
[2021-12-08] MEDS: LORazepam 1 MG Tab PO PRN (23:47)
[2021-12-09] MEDS: Sodium Chloride 0.9% 1,000 ML IV SCH ×3 (02:47→19:36)
[2021-12-09] MEDS ORDERED: Magnesium Sulfate/Water 2 GM in Premix Bag 1 BAG IV ONE (08:00)
[2021-12-09] MEDS ORDERED: Potassium Chloride 20 MEQ Tab.ER PO ONE (08:00)
[2021-12-09] MEDS: Enoxaparin 40 MG/0.4 ML Syringe SUBCUT SCH (08:31)
[2021-12-09] MEDS: Promethazine 12.5 MG in Sodium Chloride 0.9% 50 ML IV PRN (09:36)
[2021-12-09] MEDS: LORazepam 2 MG/ML SDV IVPUSH PRN (15:10)
[2021-12-09] MEDS: LORazepam 1 MG Tab PO PRN ×3 (15:24→23:45)
[2021-12-10] MEDS: Sodium Chloride 0.9% 1,000 ML IV SCH (03:22)
[2021-12-10] MEDS: Enoxaparin 40 MG/0.4 ML Syringe SUBCUT SCH (09:26)
[2021-12-10 09:38] VITALS: BP 108/68
[2021-12-10 09:39] VITALS: PULSE 58
== END 2021-12-10 15:20 | disposition home or self-care (01) | DRG 918 ==
LOC: JD.ED 03:28 → JD.ICU 06:58 → OBSVTOIN 12-09 12:34
PROVIDERS: ADMIT Internal Medicine; ATTEND Internal Medicine
DX: T39.1X1A Poisoning by 4-Aminophenol derivatives, accidental (unintentional), initial encounter (principal); T43.291A Poisoning by other antidepressants, accidental (unintentional), initial encounter; F10.129 Alcohol abuse with intoxication, unspecified; Y90.9 Presence of alcohol in blood, level not specified; R45.851 Suicidal ideations; T39.1X2A Poisoning by 4-Aminophenol derivatives, intentional self-harm, initial encounter; T43.292A Poisoning by other antidepressants, intentional self-harm, initial encounter; Z20.822 Contact with and (suspected) exposure to COVID-19; F32.A Depression, unspecified; I45.81 Long QT syndrome; F10.229 Alcohol dependence with intoxication, unspecified; Y90.1 Blood alcohol level of 20-39 mg/100 ml; Z87.01 Personal history of pneumonia (recurrent); Z90.49 Acquired absence of other specified parts of digestive tract; Z98.890 Other specified postprocedural states; Z79.52 Long term (current) use of systemic steroids
CPT/HCPCS: 36415 ×2; 80053 ×2; 80143 ×3; 80179; 80306; 80307; 82947; 83735 ×2; 84443; 84703; 85025 ×2; 85610; 87635; 93005 ×2; A9270 ×2; J0132 ×3; J1200; J1650 ×2; J2060 ×4; J2550 ×3; J3475; J7030 ×3; J7060 ×3; 93010; 96365; 96375; 99284-25; 99285; G0378; U0002

== ENCOUNTER 2022-01-10 21:28 | Emergency (ER) | payer MEDICAID ==
[2022-01-10 22:55] LABS: ACETAMINOPHEN 0 ug/mL (10-30)
[2022-01-11 05:30] VITALS: BP 104/70; PULSE 68
== END 2022-01-11 07:16 | disposition home or self-care (01) ==
LOC: JD.ED 21:28
DX: F10.129 Alcohol abuse with intoxication, unspecified (principal); Y90.5 Blood alcohol level of 100-119 mg/100 ml
CPT/HCPCS: 36415; 70450; 70450-26; 71045; 71045-26; 72125; 72125-26; 80053; 80143; 80179; 80307; 83880; 85025; 99284-25

== ENCOUNTER 2023-12-27 03:35 | Emergency (ER) | payer MEDICAID ==
[2023-12-27] MEDS ORDERED: Sodium Chloride 0.9% 10 ML Syringe FLUSH PRN (04:00)
[2023-12-27 04:21] LABS: APPEARANCE,URINE CLEAR (Clear); BILIRUBIN,URINE NEGATIVE (Negative); COLOR,URINE LIGHT YELLOW (Yellow); GLUCOSE,URINE NEGATIVE (Negative); KETONES,URINE NEGATIVE (Negative); LEUKOCYTE ESTERASE,URINE NEGATIVE (Negative); NITRITE,URINE NEGATIVE (Negative); OCCULT BLOOD,URINE TRACE-LYSED (Negative); PROTEIN,URINE TRACE (Negative); UROBILINOGEN,URINE 0.2 (0.2-1.0)
[2023-12-27 04:25] LABS: BASOPHILS PERCENT AUTO 0.5 % (0.0-1.0); EOSINOPHILS PERCENT AUTO 0.4 % (0.0-6.0); HEMATOCRIT 41.1 % (37.0-47.0); HEMOGLOBIN 14.2 gm/dl (12.0-16.0); IMMATURE GRAN ABSOLUTE AUTO 0.02 K/mm3 (0.00-0.05); IMMATURE GRAN PERCENT AUTO 0.2 % (0.0-0.4); LYMPHOCYTES ABSOLUTE AUTO 2.6 K/mm3 (1.0-4.8); LYMPHOCYTES PERCENT AUTO 31.4 % (24.0-44.0); MEAN CORPUSCULAR HEMOGLOBIN 31.2 pg (28.0-32.0); MEAN CORPUSCULAR HGB CONC 34.5 g/dl (32.0-36.0); MEAN CORPUSCULAR VOLUME 90.3 fl (83.0-99.0); MEAN PLATELET VOLUME 8.8 fl (9.4-12.3); MONOCYTES ABSOLUTE AUTO 0.4 K/mm3 (0.0-0.8); MONOCYTES PERCENT AUTO 4.4 % (0.0-8.0); NEUTROPHILS ABSOLUTE AUTO 5.3 K/mm3 (1.8-7.7); NEUTROPHILS PERCENT AUTO 63.1 % (41.0-71.0); PLATELET COUNT,PLT 271 K/mm3 (150-400); RED BLOOD CELL COUNT 4.55 M/mm3 (4.10-5.30); WHITE BLOOD CELL COUNT,WBC 8.32 K/mm3 (3.9-11.3)
[2023-12-27 04:27] LABS: BARBITURATE SCREEN,URINE NEGATIVE (CUTOFF=200); BENZODIAZEPINES SCREEN,URINE NEGATIVE (CUTOFF=150); BUPRENORPHINE SCREEN,URINE NEGATIVE (CUTOFF=10); METHADONE SCREEN, URINE NEGATIVE (CUTOFF=200); METHAMPHETAMINES SCREEN, URINE NEGATIVE (CUTOFF=500); OXYCODONE SCREEN,URINE NEGATIVE (CUT0FF=100); THC SCREEN,URINE 20 NG/ML PRESUMPTIVE POSITIVE (CUTOFF=50)
[2023-12-27 04:29] LABS: AMPHETAMINES SCREEN, URINE NEGATIVE (CUTOFF=500)
[2023-12-27 04:30] LABS: BACTERIA,URINE MANY /hpf (FEW); EPITHELIAL CELLS,URINE 0-5 /hpf (0-5); HYALINE CASTS,URINE 0-5 /lpf (0-5); MUCUS,URINE NOT SEEN /hpf (FEW); RBC,URINE NOT SEEN /hpf (0-5); WBC,URINE 0-5 /hpf (0-5)
[2023-12-27] MEDS ORDERED: Sodium Chloride 0.9% 10 ML Syringe FLUSH ONE (04:41)
[2023-12-27] MEDS ORDERED: Iopamidol 612 MG/ML 100 ML Bottle IVPUSH ONE (04:41)
[2023-12-27 04:46] LABS: A/G RATIO 0.9 (1-2); ALBUMIN 3.9 g/dl (3.4-5.0); ANION GAP 21.7 (5-15); BILIRUBIN TOTAL 0.6 mg/dL (0.2-1.0); CALCIUM 8.6 mg/dL (8.5-10.1); CREATININE 0.7 mg/dL (0.55-1.02); EST CRCL DRUG DOSING (CG) 114.01 mL/min; ETHANOL BLOOD MEDICAL 0.3 gm% (0.00); POTASSIUM,K 3.7 mEq/L (3.5-5.1); PROTEIN TOTAL,TP 8.3 g/dl (6.4-8.2)
[2023-12-27] MEDS: Ondansetron 4 MG/2 ML SDV IVPUSH ONE (05:29)
[2023-12-27 09:55] VITALS: BP 109/54; PULSE 72
== END 2023-12-27 09:50 | disposition home or self-care (01) ==
LOC: JD.ED 03:35
DX: S00.03XA Contusion of scalp, initial encounter (principal); F10.929 Alcohol use, unspecified with intoxication, unspecified; F12.90 Cannabis use, unspecified, uncomplicated; Y90.0 Blood alcohol level of less than 20 mg/100 ml; Y04.8XXA Assault by other bodily force, initial encounter
CPT/HCPCS: 36415; 70450; 71260; 72125; 74177; 80053; 80306; 80307; 81001; 83735; 84703; 85025; 96374; 99284; C1758; J2405; 99283